=== PATIENT | female | born 1935 | race Caucasian/White ===

== ENCOUNTER 2019-10-17 11:54 | Inpatient (IN) | payer OTHER ==
[~2019-10-17] VITALS: Ht 157.5 cm; Wt 59.0 kg
[~2019-10-17 11:54] MED LIST: METOPROLOL; NITROGLYCERIN
[2019-10-17] MEDS ORDERED: MORPHINE 4 MG/ML INJ. SYRINGE IVP ONE (12:15)
[2019-10-17] MEDS ORDERED: NACL 0.9% 1,000 ML IV ONE (12:15)
[2019-10-17 12:24] VITALS: BP_SYST 136
[2019-10-17 12:54] LABS: BASOPHILS % (AUTO) 0.4 % (0.0-2.0); EOSINOPHILS # (AUTO) 0.1 K/uL (0.0-0.4); EOSINOPHILS % (AUTO) 0.6 % (0.0-4.0); HEMATOCRIT 41.5 % (36-48); HEMOGLOBIN 14.2 g/dL (12.0-16.0); LYMPHOCYTES # (AUTO) 1.2 K/uL (1.0-5.5); LYMPHOCYTES % (AUTO) 11.4 % (20.5-51.5); MEAN CORPUSCULAR HEMOGLOBIN 33 pg (27-31); MEAN CORPUSCULAR HGB CONC 34 % (32-36); MEAN CORPUSCULAR VOLUME 96 fL (79.0-98.0); MONOCYTES # (AUTO) 0.7 K/uL (0.0-1.0); MONOCYTES % (AUTO) 6.9 % (1.7-9.3); NEUTROPHILS # (AUTO) 8.6 K/uL (1.8-7.7); NEUTROPHILS % (AUTO) 80.7 % (40.0-70.0); PLATELET COUNT (AUTO) 139 K/uL (130-430); RED BLOOD CELL COUNT(AUTO) 4.31 MIL/uL (4.2-6.2); RED CELL DISTRIBUTION WIDTH 14.5 % (9.0-15.0); WHITE BLOOD COUNT (AUTO) 10.7 K/uL (4.8-10.8)
[2019-10-17 13:08] LABS: ANION GAP 7 (5-15); CALCIUM 9.1 mg/dL (8.4-11.0); CHLORIDE 103 mmol/L (98-107); CREATININE 0.92 mg/dL (0.55-1.30); GLUCOSE 109 mg/dL (70-99); POTASSIUM 4.4 mmol/L (3.5-5.1); SODIUM SERUM 139 mmol/L (136-145); UREA NITROGEN, BLOOD 15 mg/dL (8-21)
[2019-10-17 13:09] LABS: PROTHROMBIN TIME 10.4 SECS (9.5-12.5)
[2019-10-17 13:25] LABS: ALANINE AMINOTRANSFERASE 29 U/L (12-78); ASPARTATE AMINOTRANSFERASE 31 U/L (10-37); TOTAL BILIRUBIN 1.2 mg/dL (0.0-1.0)
[2019-10-17 13:48] LABS: BILIRUBIN,URINE NEGATIVE (NEGATIVE); CLARITY/URINE CLEAR (CLEAR); COLOR,URINE YELLOW (YELLOW); GLUCOSE,URINE NEGATIVE (NEGATIVE); KETONES,URINE NEGATIVE (NEGATIVE); LEUKOCYTE ESTERASE ,URINE NEGATIVE (NEGATIVE); NITRITE, URINE NEGATIVE (NEGATIVE); PROTEIN URINE NEGATIVE (NEGATIVE)
[2019-10-17 13:51] LABS: BLOOD, URINE TRACE (NEGATIVE)
[2019-10-17 13:59] LABS: BACTERIA,URINE RARE /HPF (None Seen); MUCUS,URINE 1+ /LPF (None Seen); RBC,URINE 0-3 /HPF (0-3); WBC,URINE 0-3 /HPF (0-3)
[2019-10-17] MEDS ORDERED: DILTIAZEM HCL 25 MG/5 ML VIAL IVP ONE (14:15)
[2019-10-17] MEDS ORDERED: hydrALAZINE HCL 20 MG/ML VIAL IVP ONE (14:15)
[2019-10-17] MEDS ORDERED: DILTIAZEM HCL 25 MG/5 ML VIAL ONE (14:29)
[2019-10-17] MEDS: NACL 0.9% 1,000 ML IV SCH (15:06)
[2019-10-17 15:28] VITALS: BP_SYST 116
[2019-10-17] MEDS ORDERED: DIGOXIN 0.5 MG/2 ML AMP IVP ONE (16:30)
[2019-10-17] MEDS ORDERED: BUPIVACAINE /EPINEPHRINE/PF 0.5% 30 ML VIAL INJ ONE (16:30)
[2019-10-17] MEDS ORDERED: LIDOCAINE 1% 10 MG/ML, 20 ML MDV INJ ONE (16:30)
[2019-10-17] MEDS ORDERED: LR 1,000 ML IV.SOLN IV ONE (16:30)
[2019-10-17] MEDS ORDERED: MORPHINE SULFATE 10MG/10ML PF AMP EP ONE (16:30)
[2019-10-17] MEDS ORDERED: PROPOFOL 200MG/ 20ML VIAL (DIPRIVAN) IV ONE (16:30)
[2019-10-17] MEDS ORDERED: BUPIVACAINE /DEX PF 0.75% SPINAL 2 ML AMP INJ ONE (16:30)
[2019-10-17] MEDS ORDERED: TRANEXAMIC ACID 1,000 MG/10 ML VIAL IV ONE (16:30)
[2019-10-17] MEDS ORDERED: MIDAZOLAM HCL 5 MG/5 ML VIAL IVP ONE (16:30)
[2019-10-17] MEDS ORDERED: CEFAZOLIN 2 GM IVPB PREMIX 50 ML IV ONE (16:30)
[2019-10-17] MEDS: ENOXAPARIN SODIUM 80 MG/0.8 ML SYRINGE SQ SCH ×2 (17:09→21:00)
[2019-10-17] MEDS: MORPHINE 2 MG/ML INJ. SYRINGE IVP PRN (17:16)
[2019-10-17] MEDS ORDERED: ENOXAPARIN SODIUM 80 MG/0.8 ML SYRINGE ONE (17:17)
[2019-10-17 20:00] VITALS: BP_SYST 112
[2019-10-17] MEDS: METOPROLOL TARTRATE 25 MG TABLET PO SCH (20:12)
[2019-10-17] MEDS ORDERED: DILTIAZEM HCL 25 MG/5 ML VIAL IVP PRN (22:00)
[2019-10-18] MEDS: NACL 0.9% 1,000 ML IV SCH ×3 (01:15→21:23)
[2019-10-18] MEDS: MORPHINE 2 MG/ML INJ. SYRINGE IVP PRN ×3 (02:14→14:00)
[2019-10-18 02:15] VITALS: BP_SYST 112
[2019-10-18 07:47] LABS: BASOPHILS % (AUTO) 0.3 % (0.0-2.0); EOSINOPHILS # (AUTO) 0.1 K/uL (0.0-0.4); EOSINOPHILS % (AUTO) 1.3 % (0.0-4.0); HEMATOCRIT 32.8 % (36-48); LYMPHOCYTES # (AUTO) 1.3 K/uL (1.0-5.5); LYMPHOCYTES % (AUTO) 15.9 % (20.5-51.5); MEAN CORPUSCULAR HEMOGLOBIN 33 pg (27-31); MEAN CORPUSCULAR HGB CONC 34 % (32-36); MEAN CORPUSCULAR VOLUME 97 fL (79.0-98.0); MONOCYTES # (AUTO) 0.8 K/uL (0.0-1.0); MONOCYTES % (AUTO) 9.1 % (1.7-9.3); NEUTROPHILS # (AUTO) 6.2 K/uL (1.8-7.7); NEUTROPHILS % (AUTO) 73.4 % (40.0-70.0); PLATELET COUNT (AUTO) 109 K/uL (130-430); RED BLOOD CELL COUNT(AUTO) 3.39 MIL/uL (4.2-6.2); RED CELL DISTRIBUTION WIDTH 14.2 % (9.0-15.0); WHITE BLOOD COUNT (AUTO) 8.4 K/uL (4.8-10.8)
[2019-10-18 08:00] VITALS: BP_SYST 136
[2019-10-18 08:14] LABS: ALANINE AMINOTRANSFERASE 20 U/L (12-78); ALBUMIN 2.8 g/dL (3.4-4.8); ANION GAP 6 (5-15); ASPARTATE AMINOTRANSFERASE 21 U/L (10-37); CHLORIDE 108 mmol/L (98-107); CREATININE 0.82 mg/dL (0.55-1.30); GLUCOSE 93 mg/dL (70-99); POTASSIUM 4.1 mmol/L (3.5-5.1); SODIUM SERUM 139 mmol/L (136-145); TOTAL BILIRUBIN 1.4 mg/dL (0.0-1.0); UREA NITROGEN, BLOOD 14 mg/dL (8-21)
[2019-10-18 11:23] VITALS: BP_SYST 142
[2019-10-18] MEDS ORDERED: METOPROLOL TARTRATE 25 MG TABLET PO ONE (12:30)
[2019-10-18 15:19] VITALS: BP_SYST 127
[2019-10-18] MEDS ORDERED: POLYMYXIN 500,000/BACIT.10,000 UNITS in NS IRR 1 L IR ONE (16:57)
[2019-10-18] MEDS ORDERED: NACL 0.9% 1,000 ML IV SCH (17:40)
[2019-10-18] MEDS ORDERED: MORPHINE SULFATE 10MG/10ML PF AMP SP SCH (17:45)
[2019-10-18] MEDS ORDERED: NALOXONE HCL 0.4 MG/ML AMP (NARCAN) IVP PRN (17:45)
[2019-10-18] MEDS ORDERED: DIPHENHYDRAMINE INJ 50 MG/ML VIAL IM PRN (17:45)
[2019-10-18] MEDS ORDERED: METOCLOPRAMIDE HCL 10 MG/2 ML VIAL IVP PRN (17:45)
[2019-10-18 17:48] VITALS: BP_SYST 127
[2019-10-18] MEDS ORDERED: BUPIVACAINE LIPOSOME/PF 266 MG/20 ML VIAL INFIL ONE (17:54)
[2019-10-18] MEDS ORDERED: DIGOXIN 0.5 MG/2 ML AMP ONE (18:13)
[2019-10-18] MEDS ORDERED: ONDANSETRON 4 MG ODT TAB PO PRN (18:30)
[2019-10-18] MEDS ORDERED: FLUMAZENIL 0.1 MG/ML IVP ONE ×2 (18:45→20:00)
[2019-10-18] MEDS ORDERED: NALOXONE HCL 0.4 MG/ML AMP (NARCAN) ONE (18:59)
[2019-10-18] MEDS: ONDANSETRON HCL 4 MG/2 ML VIAL IVP PRN (19:30)
[2019-10-18] MEDS ORDERED: ONDANSETRON HCL 4 MG/2 ML VIAL ONE (19:32)
[2019-10-18 19:45] VITALS: BP_SYST 123
[2019-10-18] MEDS ORDERED: NALOXONE HCL 0.4 MG/ML AMP (NARCAN) IVP ONE (20:00)
[2019-10-18] MEDS ORDERED: METOPROLOL TARTRATE 25 MG TABLET PO SCH (21:00)
[2019-10-18] MEDS: DOCUSATE SODIUM 100 MG CAPSULE PO SCH (21:21)
[2019-10-18] MEDS: CEFAZOLIN 1 GM IVPB PREMIX 50 ML IV SCH (21:22)
[2019-10-18] MEDS: METOPROLOL TARTRATE 25 MG TABLET PO SCH (21:22)
[2019-10-19] VITALS: BP_SYST 118
[2019-10-19] MEDS: ONDANSETRON HCL 4 MG/2 ML VIAL IVP PRN (00:07)
[2019-10-19] MEDS: CEFAZOLIN 1 GM IVPB PREMIX 50 ML IV SCH (06:12)
[2019-10-19] MEDS: NACL 0.9% 1,000 ML IV SCH ×2 (06:12→17:20)
[2019-10-19 07:55] LABS: BASOPHILS % (AUTO) 0.4 % (0.0-2.0); HEMATOCRIT 32.4 % (36-48); HEMOGLOBIN 10.7 g/dL (12.0-16.0); LYMPHOCYTES # (AUTO) 0.5 K/uL (1.0-5.5); LYMPHOCYTES % (AUTO) 4.4 % (20.5-51.5); MEAN CORPUSCULAR HEMOGLOBIN 32 pg (27-31); MEAN CORPUSCULAR HGB CONC 33 % (32-36); MEAN CORPUSCULAR VOLUME 98 fL (79.0-98.0); MONOCYTES # (AUTO) 1.1 K/uL (0.0-1.0); MONOCYTES % (AUTO) 9.8 % (1.7-9.3); NEUTROPHILS # (AUTO) 9.5 K/uL (1.8-7.7); NEUTROPHILS % (AUTO) 85.4 % (40.0-70.0); PLATELET COUNT (AUTO) 111 K/uL (130-430); RED BLOOD CELL COUNT(AUTO) 3.31 MIL/uL (4.2-6.2); RED CELL DISTRIBUTION WIDTH 14.5 % (9.0-15.0); WHITE BLOOD COUNT (AUTO) 11.1 K/uL (4.8-10.8)
[2019-10-19 08:01] VITALS: BP_SYST 134
[2019-10-19] MEDS: METOPROLOL TARTRATE 25 MG TABLET PO SCH ×2 (08:36→21:37)
[2019-10-19] MEDS: DOCUSATE SODIUM 100 MG CAPSULE PO SCH ×2 (08:36→21:37)
[2019-10-19 12:00] VITALS: BP_SYST 149
[2019-10-19] MEDS: ENOXAPARIN SODIUM 40 MG/0.4 ML SYRINGE SUBCUT SCH (14:05)
[2019-10-19 16:00] VITALS: BP_SYST 147
[2019-10-19 20:00] VITALS: BP_SYST 131
[2019-10-19 23:47] VITALS: BP_SYST 139
[2019-10-20] MEDS: HYDROcodone/ACETAMIN 5-325 MG TAB (NORCO/ VICODIN) PO PRN ×3 (00:32→12:58)
[2019-10-20] MEDS: NACL 0.9% 1,000 ML IV SCH (03:15)
[2019-10-20 08:00] VITALS: BP_SYST 136
[2019-10-20] MEDS: DOCUSATE SODIUM 100 MG CAPSULE PO SCH (08:38)
[2019-10-20] MEDS: METOPROLOL TARTRATE 25 MG TABLET PO SCH (08:39)
[2019-10-20 11:31] VITALS: BP_SYST 141
[2019-10-20] MEDS: ENOXAPARIN SODIUM 40 MG/0.4 ML SYRINGE SUBCUT SCH (13:00)
[2019-10-20 15:19] VITALS: BP_SYST 113
[2019-10-20 15:30] VITALS: BP_SYST 113
== END 2019-10-20 15:55 | DRG 470 ==
LOC: SED 11:54 → STU 14:46
PROVIDERS: ADMIT Internal Medicine; ATTEND Internal Medicine
PROC: 0SRR0JA Replacement of Right Hip Joint, Femoral Surface with Synthetic Substitute, Uncemented, Open Approach (ICD-10-PCS; principal; 2019-10-19)
DX: S72.011A Unspecified intracapsular fracture of right femur, initial encounter for closed fracture (principal); I10 Essential (primary) hypertension; E78.00 Pure hypercholesterolemia, unspecified; I48.0 Paroxysmal atrial fibrillation; I25.10 Atherosclerotic heart disease of native coronary artery without angina pectoris; Y93.01 Activity, walking, marching and hiking; W18.39XA Other fall on same level, initial encounter; Z53.1 Procedure and treatment not carried out because of patient's decision for reasons of belief and group pressure; G62.9 Polyneuropathy, unspecified; M19.90 Unspecified osteoarthritis, unspecified site; E78.5 Hyperlipidemia, unspecified; I49.5 Sick sinus syndrome; Z79.899 Other long term (current) drug therapy; Z88.6 Allergy status to analgesic agent; Z95.0 Presence of cardiac pacemaker; Y93.89 Activity, other specified; Y92.89 Other specified places as the place of occurrence of the external cause; Y99.8 Other external cause status
CPT/HCPCS: 36415; 71045; 72170-TC; 72192-TC; 73502; 73564; 80053; 81000-TC; 84484; 85025; 85610-TC; 87081; 88305; 88311; 93005; 93306; 96361; 96374; 96375; 97116-GP; 97530-GP; 99285; C1776; C9290; G0378; J0690; J1160; J1650; J2001; J2250; J2270; J2274; J2310; J2405; J2704; J3490; J7030; J7120; L1830; Q0162

== ENCOUNTER 2019-11-08 10:33 | Inpatient (IN) | payer OTHER ==
[~2019-11-08] VITALS: Ht 157.5 cm; Wt 55.8 kg
[2019-11-08 10:39] VITALS: BP_SYST 110
[2019-11-08 12:03] LABS: ANION GAP 6 (5-15); CALCIUM 8.9 mg/dL (8.4-11.0); CHLORIDE 101 mmol/L (98-107); CREATININE 1.01 mg/dL (0.55-1.30); GLUCOSE 94 mg/dL (70-99); POTASSIUM 3.4 mmol/L (3.5-5.1); SODIUM SERUM 136 mmol/L (136-145); UREA NITROGEN, BLOOD 11 mg/dL (8-21)
[2019-11-08 12:09] LABS: ALANINE AMINOTRANSFERASE 22 U/L (12-78); ALBUMIN 3.1 g/dL (3.4-4.8); ASPARTATE AMINOTRANSFERASE 21 U/L (10-37); TOTAL BILIRUBIN 0.6 mg/dL (0.0-1.0)
[2019-11-08 12:35] LABS: BASOPHILS % (AUTO) 0.6 % (0.0-2.0); EOSINOPHILS % (AUTO) 0.5 % (0.0-4.0); HEMOGLOBIN 11.9 g/dL (12.0-16.0); LYMPHOCYTES % (AUTO) 15.1 % (20.5-51.5); MEAN CORPUSCULAR HEMOGLOBIN 31 pg (27-31); MEAN CORPUSCULAR HGB CONC 33 % (32-36); MEAN CORPUSCULAR VOLUME 95 fL (79.0-98.0); MONOCYTES # (AUTO) 0.7 K/uL (0.0-1.0); MONOCYTES % (AUTO) 10.7 % (1.7-9.3); NEUTROPHILS # (AUTO) 4.6 K/uL (1.8-7.7); NEUTROPHILS % (AUTO) 73.1 % (40.0-70.0); PLATELET COUNT (AUTO) 276 K/uL (130-430); RED CELL DISTRIBUTION WIDTH 14.2 % (9.0-15.0); WHITE BLOOD COUNT (AUTO) 6.3 K/uL (4.8-10.8)
[2019-11-08] MEDS ORDERED: ACETAMINOPHEN 325 MG TABLET PO ONE ×2 (12:45)
[2019-11-08 13:18] LABS: BILIRUBIN,URINE NEGATIVE (NEGATIVE); BLOOD, URINE NEGATIVE (NEGATIVE); CLARITY/URINE CLEAR (CLEAR); COLOR,URINE YELLOW (YELLOW); GLUCOSE,URINE NEGATIVE (NEGATIVE); KETONES,URINE NEGATIVE (NEGATIVE); LEUKOCYTE ESTERASE ,URINE TRACE (NEGATIVE); NITRITE, URINE NEGATIVE (NEGATIVE); PROTEIN URINE NEGATIVE (NEGATIVE); UROBILINOGEN,URINE 0.2 (0.2-1.0)
[2019-11-08 14:11] LABS: BACTERIA,URINE FEW /HPF (None Seen); MUCUS,URINE 1+ /LPF (None Seen); RBC,URINE 0-3 /HPF (0-3)
[2019-11-08 15:44] VITALS: BP_SYST 150
[2019-11-08] MEDS ORDERED: METOPROLOL SUCCINATE 25 MG TAB.SR.24H (TOPROL XL) PO ONE (17:30)
[2019-11-08 20:29] VITALS: BP_SYST 137
[2019-11-08] MEDS: METOPROLOL SUCCINATE 25 MG TAB.SR.24H (TOPROL XL) PO SCH (21:00)
[2019-11-09] VITALS (8 sets, daily range): BP systolic 109–137
[2019-11-09] MEDS: METOPROLOL SUCCINATE 25 MG TAB.SR.24H (TOPROL XL) PO SCH (08:12)
[2019-11-09] MEDS ORDERED: METOPROLOL SUCCINATE 25 MG TAB.SR.24H (TOPROL XL) PO ONE (09:45)
[2019-11-09] MEDS: RIVAROXABAN 10 MG TABLET PO SCH (17:19)
[2019-11-09] MEDS: METOPROLOL SUCCINATE 50 MG TAB.SR.24H (TOPROL XL) PO SCH (20:46)
[2019-11-10] VITALS (7 sets, daily range): BP systolic 99–136
[2019-11-10] MEDS: METOPROLOL SUCCINATE 50 MG TAB.SR.24H (TOPROL XL) PO SCH ×2 (08:17→22:19)
[2019-11-10] MEDS: RIVAROXABAN 10 MG TABLET PO SCH (17:55)
[2019-11-11 06:28] LABS: BASOPHILS % (AUTO) 0.5 % (0.0-2.0); EOSINOPHILS # (AUTO) 0.1 K/uL (0.0-0.4); EOSINOPHILS % (AUTO) 1.9 % (0.0-4.0); HEMATOCRIT 30.4 % (36-48); HEMOGLOBIN 10.3 g/dL (12.0-16.0); LYMPHOCYTES # (AUTO) 1.8 K/uL (1.0-5.5); LYMPHOCYTES % (AUTO) 35.7 % (20.5-51.5); MEAN CORPUSCULAR HEMOGLOBIN 32 pg (27-31); MEAN CORPUSCULAR HGB CONC 34 % (32-36); MEAN CORPUSCULAR VOLUME 95 fL (79.0-98.0); MONOCYTES # (AUTO) 0.6 K/uL (0.0-1.0); NEUTROPHILS # (AUTO) 2.6 K/uL (1.8-7.7); NEUTROPHILS % (AUTO) 49.9 % (40.0-70.0); PLATELET COUNT (AUTO) 181 K/uL (130-430); RED CELL DISTRIBUTION WIDTH 14.2 % (9.0-15.0); WHITE BLOOD COUNT (AUTO) 5.1 K/uL (4.8-10.8)
[2019-11-11 06:50] LABS: ANION GAP 7 (5-15); CALCIUM 8.3 mg/dL (8.4-11.0); CHLORIDE 102 mmol/L (98-107); CREATININE 0.98 mg/dL (0.55-1.30); GLUCOSE 87 mg/dL (70-99); POTASSIUM 3.7 mmol/L (3.5-5.1); SODIUM SERUM 138 mmol/L (136-145); UREA NITROGEN, BLOOD 18 mg/dL (8-21)
[2019-11-11 08:44] VITALS: BP_SYST 140
[2019-11-11] MEDS: METOPROLOL SUCCINATE 50 MG TAB.SR.24H (TOPROL XL) PO SCH (08:46)
[2019-11-11 12:00] VITALS: BP_SYST 118
[2019-11-11 12:49] VITALS: BP_SYST 118
[2019-11-11] MEDS ORDERED: METO50TA7 PO (12:59)
== END 2019-11-11 14:20 | disposition home or self-care (01) | DRG 641 ==
LOC: SED 10:33 → STU 13:51
PROVIDERS: ADMIT Internal Medicine Hospice and Palliative Medicine; ATTEND Internal Medicine Hospice and Palliative Medicine
DX: E86.0 Dehydration (principal); I48.20 Chronic atrial fibrillation, unspecified; E44.1 Mild protein-calorie malnutrition; I10 Essential (primary) hypertension; E78.5 Hyperlipidemia, unspecified; E78.00 Pure hypercholesterolemia, unspecified; Z88.6 Allergy status to analgesic agent; Z79.899 Other long term (current) drug therapy; Z95.0 Presence of cardiac pacemaker
CPT/HCPCS: 36415; 70450-TC; 71045; 80048; 80053; 81000-TC; 84484; 85025; 87081; 93005; 93880; 97110-GP; 97116-GP; 99285; G0378

== ENCOUNTER 2020-07-13 12:12 | Observation (INO) | payer OTHER ==
[~2020-07-13] VITALS: Ht 162.6 cm; Wt 58.5 kg
[~2020-07-13 12:12] MED LIST changes: +METO50TA7 PO; -METOPROLOL; -NITROGLYCERIN
[2020-07-13 12:23] VITALS: BP_SYST 143
[2020-07-13 13:06] LABS: BASOPHILS % (AUTO) 0.5 % (0.0-2.0); EOSINOPHILS # (AUTO) 0.1 K/uL (0.0-0.4); EOSINOPHILS % (AUTO) 1.4 % (0.0-4.0); HEMATOCRIT 39.5 % (36-48); LYMPHOCYTES # (AUTO) 1.7 K/uL (1.0-5.5); LYMPHOCYTES % (AUTO) 28.1 % (20.5-51.5); MEAN CORPUSCULAR HEMOGLOBIN 31 pg (27-31); MEAN CORPUSCULAR HGB CONC 33 % (32-36); MEAN CORPUSCULAR VOLUME 95 fL (79.0-98.0); MONOCYTES # (AUTO) 0.6 K/uL (0.0-1.0); NEUTROPHILS # (AUTO) 3.6 K/uL (1.8-7.7); PLATELET COUNT (AUTO) 152 K/uL (130-430); RED BLOOD CELL COUNT(AUTO) 4.14 MIL/uL (4.2-6.2); RED CELL DISTRIBUTION WIDTH 14.4 % (9.0-15.0)
[2020-07-13 13:14] LABS: ANION GAP 6 (5-15); CALCIUM 8.9 mg/dL (8.4-11.0); CHLORIDE 100 mmol/L (98-107); CREATININE 0.97 mg/dL (0.55-1.30); GLUCOSE 103 mg/dL (70-99); POTASSIUM 4.4 mmol/L (3.5-5.1); SODIUM SERUM 134 mmol/L (136-145); UREA NITROGEN, BLOOD 20 mg/dL (8-21)
[2020-07-13 13:23] LABS: ALANINE AMINOTRANSFERASE 20 U/L (12-78); ALBUMIN 3.4 g/dL (3.4-4.8); ASPARTATE AMINOTRANSFERASE 26 U/L (10-37)
[2020-07-13] MEDS ORDERED: METOPROLOL SUCCINATE 50 MG TAB.SR.24H (TOPROL XL) PO ONE (18:30)
[2020-07-13 22:15] VITALS: BP_SYST 158
[2020-07-13 22:36] VITALS: BP_SYST 158
[2020-07-13 22:40] VITALS: BP_SYST 158
[2020-07-13 23:08] VITALS: BP_SYST 158
[2020-07-14 07:55] VITALS: BP_SYST 156
[2020-07-14] MEDS ORDERED: METOPROLOL SUCCINATE 50 MG TAB.SR.24H (TOPROL XL) PO SCH (10:00)
[2020-07-14 11:57] VITALS: BP_SYST 129
[2020-07-14 15:49] VITALS: BP_SYST 145; BP_SYST 152; BP_SYST 166
[2020-07-14] MEDS ORDERED: AMIODARONE HCL 200 MG TABLET PO ONE (16:00)
[2020-07-14 16:36] VITALS: BP_SYST 146
[2020-07-14] MEDS ORDERED: AMIODARONE HCL 200 MG TABLET PO SCH (21:00)
[2020-07-15] MEDS ORDERED: LOSARTAN POTASSIUM 25 MG TABLET PO SCH (09:00)
[2020-07-15] MEDS ORDERED: AMI200 PO (09:05)
== END 2020-07-14 17:00 | disposition left against medical advice (07) ==
LOC: SED 12:12 → STU 14:48
PROVIDERS: ADMIT Internal Medicine Hospice and Palliative Medicine; ATTEND Internal Medicine Hospice and Palliative Medicine
DX: R55 Syncope and collapse (principal); I48.0 Paroxysmal atrial fibrillation; R07.89 Other chest pain; I49.5 Sick sinus syndrome; I42.9 Cardiomyopathy, unspecified; I10 Essential (primary) hypertension; E78.5 Hyperlipidemia, unspecified; Z95.0 Presence of cardiac pacemaker; Z79.899 Other long term (current) drug therapy; Z96.649 Presence of unspecified artificial hip joint
CPT/HCPCS: 36415 ×2; 71045; 80053; 83880; 84484 ×2; 85025; 93005; 93306; 97162; 99285; G0378

== ENCOUNTER 2022-02-23 12:41 | Inpatient (IN) | payer OTHER ==
[~2022-02-23] VITALS: Ht 162.6 cm; Wt 58.1 kg
[~2022-02-23 12:41] MED LIST changes: +AMIO200T66 PO
--- NOTE | 2022-02-23 12:43 | NUR ---
PT BIB MOTHER REFUSING TO COME INSIDE DUE TO COVID, REPORTS RECENT EXPOSURE TO COVID AND WOULD LIKE COVID TEST. PT DENIES CHEST PAIN. IN WC, AAOX4, SPEAKS IN COMPLETE SENTENCES, NO DISTRESS NOTED.
[2022-02-23 13:57] VITALS: BP_SYST 142
--- NOTE | 2022-02-23 13:57 | NUR ---
Pt triaged in waiting room.
--- NOTE | 2022-02-23 14:05 | NUR ---
Patient to ER bed 8 for evaluation. Side rails up. Report given to León LEPE.
[2022-02-23] MEDS ORDERED: dilTIAZem HCL IVP 5 MG/ML VIAL IVP ONE ×2 (14:45→15:45)
[2022-02-23 15:53] LABS: BASOPHILS % (AUTO) 0.4 % (0.0-2.0); HEMATOCRIT 40.9 % (36-48); HEMOGLOBIN 13.7 g/dL (12.0-16.0); LYMPHOCYTES # (AUTO) 0.4 K/uL (1.0-5.5); LYMPHOCYTES % (AUTO) 6.8 % (20.5-51.5); MEAN CORPUSCULAR HEMOGLOBIN 31 pg (27-31); MEAN CORPUSCULAR HGB CONC 34 % (32-36); MEAN CORPUSCULAR VOLUME 92 fL (79.0-98.0); MONOCYTES # (AUTO) 0.8 K/uL (0.0-1.0); NEUTROPHILS % (AUTO) 76.8 % (40.0-70.0); PLATELET COUNT (AUTO) 123 K/uL (130-430); RED BLOOD CELL COUNT(AUTO) 4.44 MIL/uL (4.2-6.2); RED CELL DISTRIBUTION WIDTH 13.9 % (9.0-15.0); WHITE BLOOD COUNT (AUTO) 5.2 K/uL (4.8-10.8)
[2022-02-23 16:01] LABS: PROTHROMBIN TIME 10.5 SECS (9.5-12.5)
[2022-02-23 16:03] LABS: ANION GAP 10 (5-15); CHLORIDE 98 mmol/L (98-107); CREATININE 0.93 mg/dL (0.55-1.30); GLUCOSE 103 mg/dL (70-99); POTASSIUM 3.7 mmol/L (3.5-5.1); SODIUM SERUM 132 mmol/L (136-145); UREA NITROGEN, BLOOD 14 mg/dL (8-21)
[2022-02-23 16:12] LABS: C-REACTIVE PROTEIN QUANT 0.3 mg/dL (0-0.5)
[2022-02-23 16:19] LABS: ALANINE AMINOTRANSFERASE 24 U/L (12-78); ALBUMIN 3.6 g/dL (3.4-4.8); ASPARTATE AMINOTRANSFERASE 26 U/L (10-37); LACTATE DEHYDROGENASE 161 U/L (81-234); TOTAL BILIRUBIN 0.5 mg/dL (0.0-1.0)
--- NOTE | 2022-02-23 16:36 | NUR ---
covid pcr, covid antigen, flu swab performed at bedside and sent to lab
[2022-02-23] MEDS ORDERED: DEXAMETHASONE SOD PHOSPHATE 10 MG/ML VIAL IVP ONE (18:00)
[2022-02-23] MEDS ORDERED: AZITHROMYCIN 250 MG TABLET PO ONE (18:00)
[2022-02-23] MEDS ORDERED: cefTRIAXone 1 GM IVPB PREMIX 50 ML IV ONE (18:00)
--- NOTE | 2022-02-23 18:35 | NUR ---
Maddi, power of environmental attorney, number [phone]
--- NOTE | 2022-02-23 20:00 | NUR ---
Assuming care, patient AAOx4, weak. Afib on monitor in `140s. Diltiazem drip to continue infusing at 10mg/hr. Patient on room air. No respiratory distress noted.
[2022-02-23 21:20] LABS: BILIRUBIN,URINE NEGATIVE (NEGATIVE); BLOOD, URINE 1+ (NEGATIVE); COLOR,URINE YELLOW (YELLOW); GLUCOSE,URINE NEGATIVE (NEGATIVE); KETONES,URINE 2+ (NEGATIVE); LEUKOCYTE ESTERASE ,URINE TRACE (NEGATIVE); NITRITE, URINE NEGATIVE (NEGATIVE); PROTEIN URINE 1+ (NEGATIVE); UROBILINOGEN,URINE 0.2 (0.2-1.0)
[2022-02-23 21:29] LABS: CLARITY/URINE HAZY (CLEAR)
[2022-02-23 21:30] LABS: BACTERIA,URINE FEW /HPF (None Seen); RBC,URINE 0-3 /HPF (0-3)
--- NOTE | 2022-02-23 21:30 | NUR ---
Dr Fajardo ordered to increase drip to 12.5mg/hr.
[2022-02-23 21:31] LABS: MUCUS,URINE None Seen /LPF (None Seen)
[2022-02-23] MEDS: ENOXAPARIN SODIUM 30 MG/0.3 ML SYRINGE SUBCUT SCH (22:00)
[2022-02-23] MEDS ORDERED: NALOXONE HCL 0.4 MG/ML AMP (NARCAN) IVP PRN (22:00)
[2022-02-23] MEDS ORDERED: ACETAMINOPHEN 325 MG TABLET PO PRN (22:00)
[2022-02-23] MEDS ORDERED: HYDROcodone/ACETAMIN 5-325 MG TAB (NORCO/ VICODIN) PO PRN (22:00)
[2022-02-23] MEDS ORDERED: ALBUTEROL SULFATE 0.083% 2.5 MG/3 ML VIAL.NEB INH PRN (22:00)
[2022-02-23] MEDS: NORMAL SALINE 5 ML DISP.SYRIN IVF SCH (22:00)
--- NOTE | 2022-02-24 02:00 | NUR ---
Dr Wing ordered to decrease diltiazem drip as heart rate tolerates.
[2022-02-24] MEDS: NORMAL SALINE 5 ML DISP.SYRIN IVF SCH ×3 (06:00→21:01)
--- NOTE | 2022-02-24 06:45 | NUR ---
Patient waking up pleasant. AAOx4, no acute complaints/distress. Diltiazem drip at 2.5mg/hr.
[2022-02-24 07:52] LABS: BASOPHILS % (AUTO) 0.1 % (0.0-2.0); HEMATOCRIT 44.7 % (36-48); HEMOGLOBIN 14.9 g/dL (12.0-16.0); LYMPHOCYTES # (AUTO) 0.4 K/uL (1.0-5.5); LYMPHOCYTES % (AUTO) 6.4 % (20.5-51.5); MEAN CORPUSCULAR HEMOGLOBIN 31 pg (27-31); MEAN CORPUSCULAR HGB CONC 33 % (32-36); MEAN CORPUSCULAR VOLUME 92 fL (79.0-98.0); MONOCYTES # (AUTO) 0.4 K/uL (0.0-1.0); MONOCYTES % (AUTO) 6.8 % (1.7-9.3); NEUTROPHILS # (AUTO) 4.8 K/uL (1.8-7.7); NEUTROPHILS % (AUTO) 86.7 % (40.0-70.0); PLATELET COUNT (AUTO) 123 K/uL (130-430); RED BLOOD CELL COUNT(AUTO) 4.85 MIL/uL (4.2-6.2); RED CELL DISTRIBUTION WIDTH 13.9 % (9.0-15.0); WHITE BLOOD COUNT (AUTO) 5.5 K/uL (4.8-10.8)
[2022-02-24 08:09] LABS: ALANINE AMINOTRANSFERASE 18 U/L (12-78); ALBUMIN 3.4 g/dL (3.4-4.8); ANION GAP 8 (5-15); ASPARTATE AMINOTRANSFERASE 28 U/L (10-37); CALCIUM 9.4 mg/dL (8.4-11.0); CHLORIDE 96 mmol/L (98-107); CREATININE 0.89 mg/dL (0.55-1.30); GLUCOSE 140 mg/dL (70-99); POTASSIUM 4.3 mmol/L (3.5-5.1); SODIUM SERUM 130 mmol/L (136-145); TOTAL BILIRUBIN 0.5 mg/dL (0.0-1.0); UREA NITROGEN, BLOOD 16 mg/dL (8-21)
[2022-02-24] MEDS: ENOXAPARIN SODIUM 30 MG/0.3 ML SYRINGE SUBCUT SCH ×2 (08:55→20:56)
[2022-02-24] MEDS ORDERED: AMIODARONE HCL 200 MG TABLET PO ONE (10:00)
[2022-02-24] MEDS ORDERED: CHOLECALCIFEROL (VITAMIN D3) 2,000 UNIT TABLET PO ONE (10:00)
[2022-02-24] MEDS ORDERED: METOPROLOL TARTRATE 50 MG TABLET PO ONE (10:15)
[2022-02-24 13:00] VITALS: BP_SYST 120
--- NOTE | 2022-02-24 13:00 | NUR ---
Admission Note Received patient from ER with diagnosis of Afib/Covid . Initial Plan of Care discussed-patient verbalized understanding.Placed on Airborne isolation and telemetry. Oriented to room, call light, pain management and safety.Personal belongings checked and recorded.
[2022-02-24 16:00] VITALS: BP_SYST 124
[2022-02-24] MEDS ORDERED: DEXAMETHASONE SOD PHOSPHATE 10 MG/ML VIAL IVP SCH (18:00)
--- NOTE | 2022-02-24 19:08 | NUR ---
Closing Notes: Endorsed to incoming night nurse,patient in stable condition.Safety measures rendered.Bed locked at lowest position.
[2022-02-24 20:00] VITALS: BP_SYST 127
[2022-02-24] MEDS: AZITHROMYCIN 500 MG in NS 250 ML IV SCH (20:52)
[2022-02-24] MEDS: cefTRIAXone 1 GM IVPB PREMIX 50 ML IV SCH (20:52)
[2022-02-24] MEDS: AMIODARONE HCL 200 MG TABLET PO SCH (20:55)
[2022-02-24] MEDS: METOPROLOL TARTRATE 50 MG TABLET PO SCH (21:00)
[2022-02-25] VITALS (7 sets, daily range): BP systolic 110–126
[2022-02-25 03:23] LABS: BASOPHILS % (AUTO) 0.1 % (0.0-2.0); HEMATOCRIT 40.5 % (36-48); HEMOGLOBIN 13.6 g/dL (12.0-16.0); LYMPHOCYTES # (AUTO) 0.5 K/uL (1.0-5.5); LYMPHOCYTES % (AUTO) 5.4 % (20.5-51.5); MEAN CORPUSCULAR HEMOGLOBIN 31 pg (27-31); MEAN CORPUSCULAR HGB CONC 34 % (32-36); MEAN CORPUSCULAR VOLUME 92 fL (79.0-98.0); MONOCYTES # (AUTO) 0.8 K/uL (0.0-1.0); MONOCYTES % (AUTO) 8.3 % (1.7-9.3); NEUTROPHILS # (AUTO) 8.1 K/uL (1.8-7.7); NEUTROPHILS % (AUTO) 86.2 % (40.0-70.0); PLATELET COUNT (AUTO) 124 K/uL (130-430); RED BLOOD CELL COUNT(AUTO) 4.42 MIL/uL (4.2-6.2); RED CELL DISTRIBUTION WIDTH 13.7 % (9.0-15.0); WHITE BLOOD COUNT (AUTO) 9.4 K/uL (4.8-10.8)
[2022-02-25 03:27] LABS: ANION GAP 10 (5-15); CALCIUM 8.6 mg/dL (8.4-11.0); CHLORIDE 96 mmol/L (98-107); CREATININE 1.05 mg/dL (0.55-1.30); GLUCOSE 152 mg/dL (70-99); POTASSIUM 3.6 mmol/L (3.5-5.1); SODIUM SERUM 129 mmol/L (136-145); UREA NITROGEN, BLOOD 36 mg/dL (8-21)
[2022-02-25 03:43] LABS: ALANINE AMINOTRANSFERASE 15 U/L (12-78); ALBUMIN 3.1 g/dL (3.4-4.8); ASPARTATE AMINOTRANSFERASE 28 U/L (10-37); THYROID STIMULATING HORMONE 0.33 uIu/mL (0.36-3.74); TOTAL BILIRUBIN 0.2 mg/dL (0.0-1.0)
--- NOTE | 2022-02-25 04:01 | NUR ---
critical lab: troponin Received critical lab result for troponin 55. Paged and s/w Dr. Nicole; no change in orders.
[2022-02-25 04:06] LABS: C-REACTIVE PROTEIN QUANT 3.5 mg/dL (0-0.5)
[2022-02-25] MEDS: NORMAL SALINE 5 ML DISP.SYRIN IVF SCH ×3 (05:05→21:47)
[2022-02-25] MEDS ORDERED: ACETAMINOPHEN 325 MG TABLET PO PRN ×2 (08:45→09:15)
[2022-02-25] MEDS ORDERED: MUPIROCIN 2% TOPICAL OINTMENT 22 GM NS PRN (08:45)
[2022-02-25] MEDS ORDERED: LORazepam 2 MG/ML VIAL IVP PRN (08:45)
[2022-02-25] MEDS ORDERED: ZOLPIDEM TARTRATE 5 MG TABLET PO PRN (08:45)
[2022-02-25] MEDS ORDERED: POTASSIUM CHLORIDE 20 MEQ TAB.PRT.SR PO PRN (08:45)
[2022-02-25] MEDS ORDERED: NALOXONE HCL 0.4 MG/ML AMP (NARCAN) IVP PRN ×2 (08:45)
[2022-02-25] MEDS ORDERED: DOCUSATE SODIUM 100 MG CAPSULE PO PRN (08:45)
[2022-02-25] MEDS ORDERED: MORPHINE 2 MG/ML INJ. SYRINGE IVP PRN ×2 (08:45)
[2022-02-25] MEDS ORDERED: MAGNESIUM SULFATE 50 ML IV PRN (08:45)
[2022-02-25] MEDS ORDERED: ONDANSETRON HCL 4 MG/2 ML VIAL IVP PRN (08:45)
--- NOTE | 2022-02-25 09:02 | NUR ---
CONSULTATION PAGED REASON FOR CONSULTATION:COVID POSITIVE WAS CONSULT CALED?Y PERSON WHO WAS NOTIFIED:JACINTA CONSULTING PHYSICIAN:JACK SULTANA STUNNER ANIMAL SPECIALTY:INFECTIOUS DISEASE STUNNER ANIMAL PHONE NUMBER:[phone] REQUESTING PHYSICIAN:BURTON VERNON
--- NOTE | 2022-02-25 09:06 | NUR ---
CONSULTATION PAGED REASON FOR CONSULTATION:COVID PNEUMONIA WAS CONSULT CALED?Y PERSON WHO WAS NOTIFIED:DE CONSULTING PHYSICIAN:SARAI DUENAS ( SUPERVISOR [employer]) SENIOR IT BUSINESS ANALYST SPECIALTY:PULMONARY SENIOR IT BUSINESS ANALYST PHONE [phone]: REQUESTING PHYSICIAN:BURTON VERNON
[2022-02-25] MEDS: CHOLECALCIFEROL (VITAMIN D3) 2,000 UNIT TABLET PO SCH (09:49)
[2022-02-25] MEDS: AMIODARONE HCL 200 MG TABLET PO SCH ×2 (09:49→21:53)
[2022-02-25] MEDS: METOPROLOL TARTRATE 50 MG TABLET PO SCH ×2 (09:50→21:52)
[2022-02-25] MEDS: ENOXAPARIN SODIUM 30 MG/0.3 ML SYRINGE SUBCUT SCH ×2 (09:53→21:45)
--- NOTE | 2022-02-25 13:05 | NUR ---
Dietitian Recommendations * Continue w/ Cardiac diet * Encourage PO intake * Consider Ensure Enlive BID if PO intake is <75% Please refer to Nutrition Assessment for details. Addendum: 02/25/22 at [address] Amended: Links added.
[2022-02-25] MEDS: NACL 0.9% 1,000 ML IV SCH (16:00)
--- NOTE | 2022-02-25 19:15 | NUR ---
received report from outgoing RN. pt covid positive, in bed, facial expressions flat, obeys command. RAC with 20 G infusing NS @100/ml.
[2022-02-25] MEDS: cefTRIAXone 1 GM IVPB PREMIX 50 ML IV SCH (21:46)
[2022-02-25] MEDS: AZITHROMYCIN 500 MG in NS 250 ML IV SCH (21:46)
[2022-02-26 00:25] VITALS: BP_SYST 124
[2022-02-26] MEDS: NACL 0.9% 1,000 ML IV SCH ×2 (00:30→10:30)
[2022-02-26] MEDS: NORMAL SALINE 5 ML DISP.SYRIN IVF SCH (06:18)
--- NOTE | 2022-02-26 06:30 | NUR ---
ROUNDS: NOTED PT ASLEEP IN BED. NO S/SX OF RESP DISTRESS, SLIGHT UNPRODUCTIVE COUGH NOTED. ALL DUE MEDS GIVEN, IV LINE FLUSHED WITH 10CC NS PER ORDER. NOTED PT INQUIRING ON WHEN SHE CAN GO HOME. SUGGESTED TO HER SHE WILL SEE THE MD DURING THEIR ROUNDS. WILL GIVE END OF SHIFT REPORT TO INCOMING NURSE.
[2022-02-26 08:00] VITALS: BP_SYST 101
[2022-02-26] MEDS ORDERED: APIX2.5T PO (08:02)
[2022-02-26] MEDS ORDERED: ZIT250 PO (08:02)
[2022-02-26] MEDS: CHOLECALCIFEROL (VITAMIN D3) 2,000 UNIT TABLET PO SCH (09:30)
[2022-02-26] MEDS: ENOXAPARIN SODIUM 30 MG/0.3 ML SYRINGE SUBCUT SCH (09:32)
[2022-02-26] MEDS: METOPROLOL TARTRATE 50 MG TABLET PO SCH (09:36)
[2022-02-26] MEDS: AMIODARONE HCL 200 MG TABLET PO SCH (09:37)
[2022-02-26 11:24] VITALS: BP_SYST 121
[2022-02-26 11:29] VITALS: BP_SYST 106
== END 2022-02-26 11:45 | disposition home health service (06) | DRG 177 ==
LOC: SED 12:41 → SIC 18:59 → STU 02-24 11:09
PROVIDERS: ADMIT General Practice; ATTEND General Practice
DX: U07.1 COVID-19 (principal); J12.82 Pneumonia due to coronavirus disease 2019; E87.1 Hypo-osmolality and hyponatremia; I24.8 Other forms of acute ischemic heart disease; I48.20 Chronic atrial fibrillation, unspecified; G30.9 Alzheimer's disease, unspecified; I10 Essential (primary) hypertension; F02.80 Dementia in other diseases classified elsewhere, unspecified severity, without behavioral disturbance, psychotic disturbance, mood disturbance, and anxiety; E78.5 Hyperlipidemia, unspecified; Z96.641 Presence of right artificial hip joint; Z95.0 Presence of cardiac pacemaker; Z91.14 Patient's other noncompliance with medication regimen; Z87.81 Personal history of (healed) traumatic fracture; Z79.899 Other long term (current) drug therapy; Z88.6 Allergy status to analgesic agent
CPT/HCPCS: 36415; 71045; 80053; 81000; 82550; 82803-TC; 83605; 83615; 83735; 83880; 84443; 84484; 85025; 85379; 85384; 85610-TC; 85730-TC; 86140; 87040; 87081; 87086; 87635-QW; 96374; 96375; 99291; J0456; J0696; J1100; J1650; J3490; J7050; Q0144